=== PATIENT | female | born 1980 | race Caucasian/White ===

== ENCOUNTER → 2020-12-07 | Outpatient (CLI) | payer OTHER ==
[~2020-12-07] MED LIST: AMT50T; TYLENOL MIGRAINE
--- NOTE | 2020-12-07 17:05 | Diagnostic Imaging Report ---
PROCEDURE: US Non-ob pelvis comp/trans. TECHNIQUE: Multiple realtime grayscale images were obtained of the pelvis in various projections endovaginally. Transabdominal imaging was also performed. INDICATION: Abnormal uterine bleeding. FINDINGS: The uterus measures 9.6 x 5.4 x 6 cm. The right ovary measures 2.8 x 1.5 x 2.5 cm. Endometrial stripe is 8 mm. There are no myometrial masses. The right ovary measures 2.8 x 1.5 x 2.5 cm. The left ovary measures 3.5 x 1.1 x 2.9 cm. There are small follicular cysts present. There is normal blood flow to both ovaries. There is no free fluid. IMPRESSION: Simple appearing left ovarian cyst. No abnormalities demonstrated. Dictated on workstation # [id number]
== END ==
LOC: RAD 15:15
PROVIDERS: ATTEND Family Medicine
DX: N83.202 Unspecified ovarian cyst, left side (principal)
CPT/HCPCS: 76830; 76856

== ENCOUNTER 2021-05-31 05:29 | Outpatient (CLI) | payer OTHER ==
[~2021-05-31] VITALS: Ht 175.3 cm; Wt 106.8 kg
[2021-05-31] MEDS ORDERED: PROP80CA4 PO (11:17)
[2021-05-31] MEDS ORDERED: METF750T45 PO (11:17)
[2021-05-31] MEDS ORDERED: LIRA0.6P SQ (11:17)
[2021-05-31] MEDS ORDERED: TRAZ-227 PO (11:17)
[2021-05-31] MEDS ORDERED: DULO60CA59 PO (11:17)
[2021-06-03] MEDS ORDERED: IBUP-1773 PO (12:52)
[2021-06-03] MEDS ORDERED: MEDR10TA PO (12:52)
== END 2021-05-31 11:44 | disposition home or self-care (01) ==
LOC: PREOP 05:29
PROVIDERS: ATTEND Obstetrics & Gynecology
DX: Z01.818 Encounter for other preprocedural examination (principal)

== ENCOUNTER 2021-06-03 09:30 | Day surgery (SDC) | payer OTHER ==
[2021-06-03] VITALS (10 sets, daily range): BP systolic 106–124; BP diastolic 64–74
[~2021-06-03] VITALS: Ht 175.3 cm; Wt 106.8 kg
[~2021-06-03 09:30] MED LIST changes: +DULO60CA59 PO; +LIRA0.6P SQ; +METF750T45 PO; +PROP80CA4 PO; +TRAZ-227 PO
[2021-06-03] MEDS ORDERED: LACTATED RINGERS 1,000 ML IV PRN (09:45)
[2021-06-03 10:13] LABS: BASOPHILS # (AUTO) 0.1 10^3/uL (0.0-0.1); BASOPHILS % (AUTO) 1 % (0-10); EOSINOPHILS # (AUTO) 0.2 10^3/uL (0.0-0.3); EOSINOPHILS % (AUTO) 3 % (0-10); HEMATOCRIT 38 % (35-52); HEMOGLOBIN 12.5 g/dL (11.5-16.0); LYMPHOCYTES # (AUTO) 1.5 10^3/uL (1.0-4.0); LYMPHOCYTES % (AUTO) 23 % (12-44); MEAN CORPUSCULAR HEMOGLOBIN 27 pg (25-34); MEAN CORPUSCULAR HGB CONC 33 g/dL (32-36); MEAN CORPUSCULAR VOLUME 84 fL (80-99); MONOCYTES # (AUTO) 0.4 10^3/uL (0.0-1.0); MONOCYTES % (AUTO) 6 % (0-12); NEUTROPHILS # (AUTO) 4.3 10^3/uL (1.8-7.8); NEUTROPHILS % (AUTO) 66 % (42-75); PLATELET COUNT 148 10^3/uL (130-400); WHITE BLOOD COUNT 6.5 10^3/uL (4.3-11.0)
[2021-06-03] MEDS ORDERED: BUPIVACAINE 0.25% 30 ML (SENSORCAINE) VIAL ONE (10:46)
[2021-06-03] MEDS ORDERED: MIDAZOLAM 2 MG/2 ML (VERSED) VIAL ONE ×2 (11:05→11:15)
[2021-06-03] MEDS ORDERED: LIDOCAINE PF 2% 5 ML (XYLOCAINE) VIAL ONE (11:15)
[2021-06-03] MEDS ORDERED: fentaNYL INJ 100 MCG/2 ML AMP ONE (11:15)
[2021-06-03] MEDS ORDERED: ONDANSETRON 4 MG/2 ML (SDV) Z0FRAN ONE (11:15)
[2021-06-03] MEDS ORDERED: proPOfol 200 MG/20 ML (DIPRIVAN) VIAL IV ONE (11:15)
[2021-06-03] MEDS ORDERED: MIDAZOLAM 2 MG/2 ML (VERSED) VIAL IVP ONE (11:15)
[2021-06-03] MEDS ORDERED: KETOROLAC 30 MG/ML VIAL ONE (12:11)
[2021-06-03] MEDS ORDERED: SEVOFLURANE (ULTANE) 15 ML INHAL SOLN ONE (12:28)
[2021-06-03] MEDS ORDERED: PROMETHAZINE INJ 25 MG/ML (PHENERGAN) AMP IVP ONE (12:45)
[2021-06-03] MEDS ORDERED: MEPERIDINE (DEMEROL) INJ 50 MG/ML IVP ONE (12:45)
[2021-06-03] MEDS ORDERED: HYDROmorphone 2 MG/ML VIAL (DILAUDID) IV ONE (12:45)
[2021-06-03] MEDS ORDERED: morphine INJ 10 MG/ML 1ML (SYR OR VIAL) IVP ONE (12:45)
[2021-06-03] MEDS ORDERED: ONDANSETRON 4 MG/2 ML (SDV) Z0FRAN IVP PRN ×2 (12:45→13:00)
--- NOTE | 2021-06-03 12:51 | Anesthesia-General Post-Op ---
General Patient Condition Mental Status/LOC: Same as Preop Cardiovascular: Satisfactory Nausea/Vomiting: Absent Respiratory: Satisfactory Pain: Controlled Complications: Absent Post Op Complications Complications None Follow Up Care/Instructions Patient Instructions None needed. Anesthesia/Patient Condition Patient Condition Patient is doing well, no complaints, stable vital signs, no apparent adverse anesthesia problems. No complications reported per nursing. FOX LIVE CRNA Jun 03, 2021 12:51
[2021-06-03] MEDS ORDERED: IBUP-1773 PO (12:52)
[2021-06-03] MEDS ORDERED: MEDR10TA PO (12:52)
--- NOTE | 2021-06-03 12:53 | Discharge Inst-Women's Service ---
Discharge Inst-Women's Serv Depart Medication/Instructions New, Converted or Re-Newed RX: Transmitted to Pharmacy Problems Reviewed?: Yes Consults/Follow Up Additional Follow Up: Yes Orders/Referrals Dr. Morales in 7-10 days Activity Activity: Activity as Tolerated Driving Instructions: You May Drive NO SMOKING: NO SMOKING Nothing Inside Vagina: No Douching, No [place], No Tampons Diet Discharge Diet: No Restrictions Symptoms to Report to : Bleeding Excessive, Pain Increased, Fever Over 101 Degrees F, Vaginal Bleeding Increase, Questions/Concerns For Any Problems or Questions: Contact Your Physician NOMI MORALES DO Jun 03, 2021 12:53
[2021-06-03] MEDS ORDERED: KETOROLAC 30 MG/ML VIAL IVP ONE (13:00)
[2021-06-03] MEDS ORDERED: D5 LR IV SOLUTION 1,000 ML IV SCH (13:00)
[2021-06-03] MEDS ORDERED: HYDROcodone/APAP 5 MG/325 MG (LORTAB) TAB PO PRN (13:00)
--- NOTE | 2021-06-03 14:47 | OPERATIVE REPORT ---
DATE OF SERVICE: PREOPERATIVE DIAGNOSES: 1. A 40-year-old female with abnormal uterine bleeding. 2. Thickened endometrium on uterine ultrasound. POSTOPERATIVE DIAGNOSES: 1. A 40-year-old female with abnormal uterine bleeding. 2. Thickened endometrium on uterine ultrasound. 3. Intracervical mass. PROCEDURE: D and C. SURGEON: Vamsi Lr DO ANESTHESIA: LMA general. ESTIMATED BLOOD LOSS: 50 mL. URINE OUTPUT: 100 mL drained at the start of procedure. FLUIDS: 800 mL lactated Ringer's solution. FINDINGS: Grossly normal appearing external female genitalia. Cervix appears normal with the exception of a mass that appears to be arising from the cervical os consistent with potentially a fibroid. SPECIMEN SENT: Endometrial curettings. INDICATIONS FOR PROCEDURE: This 40-year-old female is a patient who had sought care for abnormal bleeding and bleeding changes in the past six months. She reports bleeding through tampons and pads and having to change her clothes at work. Discussed with the patient due to her age, need for endometrial sampling. We discussed D and C as both of endometrial sampling, potentially curative measures. Risks of procedure were discussed with the patient in detail. After all her questions were answered in the preoperative area, the patient was taken to the operating room. OPERATIVE REPORT IN DETAIL: Once in the operating room, the patient was placed in the dorsal lithotomy position, prepped and draped in normal sterile fashion. Anesthesia was administered and found to be adequate. The bladder was then drained using straight catheterization. Weighted speculum was inserted to the patient's vagina. Right angle retractor was used to visualize the cervix. It was grasped at 12 o'clock position using a long Allis clamp. I first began by taking a scraping of the visible intracervical mass that appears to be a fibroid. I do this with a ring forceps and then a curettage. I then performed a paracervical block at 3 and 9 o'clock positions on the cervix. Care was taken to aspirate for injecting 0.25% Marcaine, 5 mL were injected into each site. I then gently sound the uterine cavity, depth was found to be 8 cm. I dilated the cervix to a maximum dilatation approximately 1 cm, at which point I performed a gentle curettage of all endometrial surfaces. A copious amount of endometrial tissue was collected in the process of doing this, after which there was a small amount of bleeding noted from the biopsy site on the cervix, which I made hemostatic using silver nitrate, then bleeding subsides significantly. All instruments were removed from the patient's vagina at that point. Lap and sponge counts were correct at the end of the procedure. Instrument counts correct as well. Job ID: [id number] DocumentID: [id number] Dictated Date: 06/03/2021 13:03:28 Application Coordinator Date: 06/03/2021 14:46:11 Dictated By: DO CISCO MALAVE
== END 2021-06-03 14:25 | disposition home or self-care (01) ==
LOC: SDC 09:30
PROVIDERS: ATTEND Obstetrics & Gynecology
DX: N84.0 Polyp of corpus uteri (principal); N94.12 Deep dyspareunia; E11.9 Type 2 diabetes mellitus without complications; Z79.84 Long term (current) use of oral hypoglycemic drugs; Z98.51 Tubal ligation status
CPT/HCPCS: 36415; 82947; 84443; 84703; 85025; 86850; 86900; 86901; 87081

== ENCOUNTER 2021-07-01 05:50 | Outpatient (CLI) | payer OTHER ==
[~2021-07-01] VITALS: Ht 175.3 cm; Wt 106.8 kg
[~2021-07-01 05:50] MED LIST changes: +IBUP-1773 PO; +MEDR10TA PO
[2021-07-03] MEDS ORDERED: DULA0.75 SQ (13:39)
[2021-07-03] MEDS ORDERED: DULO60CA7 PO (13:39)
== END 2021-07-03 14:06 | disposition home or self-care (01) ==
LOC: PREOP 05:50
PROVIDERS: ATTEND Obstetrics & Gynecology
DX: Z01.818 Encounter for other preprocedural examination (principal)

== ENCOUNTER 2021-07-08 05:58 | Day surgery (SDC) | payer OTHER ==
[2021-07-08] VITALS (9 sets, daily range): BP systolic 109–134; BP diastolic 59–81
[~2021-07-08] VITALS: Ht 175.3 cm; Wt 106.8 kg
[~2021-07-08 05:58] MED LIST changes: +DULA0.75 SQ; +DULO60CA7 PO
[2021-07-08] MEDS ORDERED: metroNIDAZOLE 500MG/100ML IVPB 100 ML IV ONE (06:15)
[2021-07-08] MEDS ORDERED: ceFAZolin 2 GM IV Premixed 50 ML IV ONE (06:15)
[2021-07-08] MEDS ORDERED: LACTATED RINGERS 1,000 ML IV PRN (06:15)
[2021-07-08 06:46] LABS: BASOPHILS # (AUTO) 0.1 10^3/uL (0.0-0.1)
[2021-07-08 06:48] LABS: BASOPHILS % (AUTO) 1 % (0-10); EOSINOPHILS # (AUTO) 0.3 10^3/uL (0.0-0.3); EOSINOPHILS % (AUTO) 3 % (0-10); HEMATOCRIT 37 % (35-52); LYMPHOCYTES # (AUTO) 1.3 10^3/uL (1.0-4.0); LYMPHOCYTES % (AUTO) 17 % (12-44); MEAN CORPUSCULAR HEMOGLOBIN 28 pg (25-34); MEAN CORPUSCULAR HGB CONC 33 g/dL (32-36); MEAN CORPUSCULAR VOLUME 85 fL (80-99); MEAN PLATELET VOLUME 14.2 fL (9.0-12.2); MONOCYTES # (AUTO) 0.6 10^3/uL (0.0-1.0); MONOCYTES % (AUTO) 7 % (0-12); NEUTROPHILS # (AUTO) 5.6 10^3/uL (1.8-7.8); NEUTROPHILS % (AUTO) 71 % (42-75); PLATELET COUNT 157 10^3/uL (130-400); WHITE BLOOD COUNT 7.8 10^3/uL (4.3-11.0)
[2021-07-08] MEDS ORDERED: ROCURONIUM 10 MG/ML 5 ML SYRINGE IV ONE ×2 (06:57→08:24)
[2021-07-08] MEDS ORDERED: NEOSTIGMINE 3 MG/3 ML VIAL ONE (06:57)
[2021-07-08] MEDS ORDERED: LIDOCAINE PF 2% 5 ML (XYLOCAINE) VIAL ONE (06:57)
[2021-07-08] MEDS ORDERED: proPOfol 200 MG/20 ML (DIPRIVAN) VIAL IV ONE (06:57)
[2021-07-08] MEDS ORDERED: GLYCOPYRROLATE 0.2 MG/ML (ROBINUL) 2 ML VIAL ONE (06:57)
[2021-07-08] MEDS ORDERED: ONDANSETRON 4 MG/2 ML (SDV) Z0FRAN ONE ×2 (06:57→07:00)
[2021-07-08] MEDS ORDERED: MIDAZOLAM 2 MG/2 ML (VERSED) VIAL ONE (06:57)
[2021-07-08] MEDS ORDERED: fentaNYL INJ 100 MCG/2 ML AMP ONE (06:57)
[2021-07-08] MEDS ORDERED: LACTATED RINGERS 1,000 ML IV SCH (07:00)
[2021-07-08] MEDS ORDERED: SCOPOLAMINE 1.5 MG (TRANSDERM-SCOP) PATCH TD ONE (07:00)
[2021-07-08] MEDS ORDERED: ONDANSETRON 4 MG/2 ML (SDV) Z0FRAN IVP ONE (07:00)
[2021-07-08] MEDS ORDERED: FAMOTIDINE 20MG/2ML IV (PEPCID) IVP ONE (07:00)
[2021-07-08] MEDS ORDERED: SCOPOLAMINE 1.5 MG (TRANSDERM-SCOP) PATCH ONE (07:00)
[2021-07-08] MEDS ORDERED: FAMOTIDINE 20MG/2ML IV (PEPCID) ONE (07:01)
[2021-07-08] MEDS ORDERED: BUPIVACAINE 0.25% 30 ML (SENSORCAINE) VIAL ONE (07:02)
--- NOTE | 2021-07-08 07:06 | Progress Note-Pre Operative ---
Pre-Operative Progress Note H&P Reviewed The H&P was reviewed, patient examined and no changes noted. Date Seen by Provider: Jul 08, 2021 Time Seen by Provider: 07:05 Date H&P Reviewed: Jul 08, 2021 Time H&P Reviewed: 07:00 Pre-Operative Diagnosis: AUB, Fibroid uterus NOMI MORALES DO Jul 08, 2021 07:06
--- NOTE | 2021-07-08 07:11 | Discharge Inst-Women's Service ---
Discharge Inst-Women's Serv Depart Medication/Instructions New, Converted or Re-Newed RX: Transmitted to Pharmacy Problems Reviewed?: Yes Consults/Follow Up Additional Follow Up: Yes Orders/Referrals Dr. Lr in 7-10 days and in 8 weeks Activity Activity: Activity as Tolerated Driving Instructions: No Driving for 1 Week NO SMOKING: NO SMOKING Nothing Inside Vagina: No Douching, No [place], No Tampons Diet Discharge Diet: No Restrictions Symptoms to Report to : Bleeding Excessive, Pain Increased, Fever Over 101 Degrees F, Vaginal Bleeding Increase, Questions/Concerns For Any Problems or Questions: Contact Your Physician Skin/Wound Care Infection Signs and Symptoms: Increased Redness, Foul Odor of Wound, Increased Drainage, Skin Itchy or Has a Rash, Increased Swelling, Temperature Above 101 F Operative Area Clean and Dry: Keep Incision Clean/Dry Stitches/Jose/Dermabond: Dermabond, Care of Stitches Bathing Instructions: NOMI Ruiz DO Jul 08, 2021 07:11
[2021-07-08] MEDS ORDERED: DOCU100C37 PO (07:13)
[2021-07-08] MEDS ORDERED: BENZ1LOZ61 MM (07:13)
[2021-07-08] MEDS ORDERED: IBUP-844 PO (07:13)
[2021-07-08] MEDS ORDERED: SMT80CT PO (07:13)
[2021-07-08] MEDS ORDERED: HYDR-34 PO (07:13)
[2021-07-08] MEDS ORDERED: ANTACID SUSP 30 ML UDC (MYLANTA) PO PRN (07:15)
[2021-07-08] MEDS ORDERED: SIMETHICONE 80 MG (MYLICON) CHEW PO PRN (07:15)
[2021-07-08] MEDS ORDERED: HYDROmorphone 2 MG/ML VIAL (DILAUDID) IV PRN (07:15)
[2021-07-08] MEDS ORDERED: NALOXONE 0.4 MG/ML 1 ML (NARCAN) VIAL IV PRN (07:15)
[2021-07-08] MEDS ORDERED: ZOLPIDEM 5 MG (AMBIEN) TAB PO PRN (07:15)
[2021-07-08] MEDS ORDERED: HYDROcodone/APAP 7.5 MG/325 MG (LORTAB, LORCET PLUS) TABLET PO PRN (07:15)
[2021-07-08] MEDS ORDERED: ONDANSETRON 4 MG/2 ML (SDV) Z0FRAN IV PRN (07:15)
[2021-07-08] MEDS ORDERED: KETOROLAC 30 MG/ML VIAL IVP PRN (07:15)
[2021-07-08] MEDS ORDERED: DOCUSATE SODIUM 100 MG (COLACE) CAP PO PRN (07:15)
[2021-07-08] MEDS ORDERED: CHLORASEPTIC LOZENGE MM PRN (07:15)
[2021-07-08] MEDS: LACTATED RINGERS 1,000 ML IV SCH ×2 (07:22→11:46)
[2021-07-08] MEDS ORDERED: HYDROmorphone 2 MG/ML VIAL (DILAUDID) ONE (08:02)
[2021-07-08] MEDS ORDERED: SEVOFLURANE (ULTANE) 15 ML INHAL SOLN ONE (08:49)
[2021-07-08] MEDS ORDERED: ONDANSETRON 4 MG/2 ML (SDV) Z0FRAN IVP PRN (09:15)
[2021-07-08] MEDS ORDERED: HYDROmorphone 2 MG/ML VIAL (DILAUDID) IV ONE (09:15)
[2021-07-08] MEDS ORDERED: morphine INJ 10 MG/ML 1ML (SYR OR VIAL) IVP ONE (09:15)
[2021-07-08] MEDS ORDERED: KETOROLAC 30 MG/ML VIAL ONE (09:19)
[2021-07-08] MEDS ORDERED: IBUPROFEN 600 MG (MOTRIN) TAB PO SCH (12:00)
--- NOTE | 2021-07-08 17:36 | OPERATIVE REPORT ---
DATE OF SERVICE: PREOPERATIVE DIAGNOSES: 1. A 40-year-old female with abnormal uterine bleeding. 2. Menorrhagia. 3. Fibroid uterus. POSTOPERATIVE DIAGNOSES: 1. A 40-year-old female with abnormal uterine bleeding. 2. Menorrhagia. 3. Fibroid uterus. PROCEDURE: Robotic-assisted total laparoscopic hysterectomy with bilateral salpingectomy. SURGEON: Vamsi Morales DO TIMBER HEWER: Cyn Bush DNP, was necessary for manipulation and retraction throughout the procedure. ANESTHESIA: General endotracheal. ESTIMATED BLOOD LOSS: 50 mL. URINE OUTPUT: 200 mL clear at the end of the procedure. FLUIDS: 1800 mL of lactated Ringer's solution. FINDINGS: A bulky and hyperemic-appearing uterus with bilateral fallopian tubes consistent with history of prior tubal ligation, grossly normal appearing bilateral ovaries and external female genitalia. SPECIMEN SENT: Uterus, bilateral fallopian tubes. INDICATIONS FOR PROCEDURE: This 40-year-old female is a patient who had sought care in my office for ongoing issues with heavy bleeding. She underwent D and C not that long ago and was found to have fragments of fibroid on her endometrial curettings as well as otherwise normal benign tissue. The patient had significant bleeding postoperatively from the D and C continued to do so for the next several weeks. Due to concerns that the bleeding was not getting any better, the patient wished to proceed with more definitive measures, although the alternatives had already been discussed prior to the D and C. We once again reviewed these and the patient was agreeable to proceed with more definitive measures in the form of hysterectomy. Risks of the procedure were discussed with the patient in detail including risk of bleeding, infection, damage to surrounding structures including, but not limited to bowel, bladder, ureter, kidneys, possible need for reoperation, postoperative complications that may occur, risk from anesthesia, recovery timeframe, hospital stay and even . After everything was discussed with the patient in detail, consent was obtained in the preoperative area, the patient was taken to the operating room. OPERATIVE REPORT IN DETAIL: Once in the operating room, general anesthesia was found to be adequate. She was placed in dorsal lithotomy position, prepped and draped in normal sterile fashion. Timeout was performed and a Leonard catheter was placed using sterile technique. A weighted speculum inserted to the patient's vagina. Right angle retractor was used to visualize the cervix, which was grasped at 12 o'clock position using long Allis clamp. I then placed an 0 Vicryl suture through the anterior lip of the cervix and the suture was then used as my retraction on the cervix. I then gently sound the uterine cavity, depth was found to be 9 cm. I selected an 8 cm Shayy uterine manipulator tip and a 3.5 cm colpotomy ring, advanced the manipulator tip into the uterus where I deployed the balloon and advanced the colpotomy ring around the vaginal fornix, at which point I removed all the other instruments from the patient's vagina, performed change of gloves obtained my attention to the abdomen, where subcostally at the left midclavicular line, I introduced the Veress needle approximately two fingerbreadths below the subcostal margin. The Veress needle is introduced through the skin until intraperitoneal placement was confirmed using saline drop test. An opening pressure of 4 mmHg was noted using CO2 gas. I proceeded with insufflation to maximum pressure of 15 mmHg, at which point, I made an infraumbilical incision with a knife after infiltrating the skin using 0.25% Marcaine and once an incision was made, I introduced an 8 mm blunt laparoscopic [place] camera trocar. Once this trocar was in place, I am able to confirm intraperitoneal placement using the da [place] laparoscope. There was no evidence of damage upon my entry site. Brief scan of the upper abdominal anatomy appears to be grossly normal. The Veress needle site is inspected and found to be hemostatic and without damage to surrounding structures. The Veress was then removed from the left upper quadrant. I then placed the patient in steep Trendelenburg. We were able to visualize all my pelvic anatomy as defined in my findings above. I placed two lateral trocars using both 8 mm trocars approximately 10 cm lateral to my infraumbilical trocar. Once both these trocars were in place, I brought in the [place] robot and docked in appropriate fashion placing the SynchroSeal device in left hand and monopolar rebecca in the right hand. I performed the following dissection bilaterally. I started the uteroovarian ligament, which I sealed and transected using the SynchroSeal device. I then created a window in the mesosalpinx and took this laterally using the SynchroSeal device, amputating the fallopian tube from its surrounding blood supply. I then grasped the round ligament, which I sealed and transected using the SynchroSeal device. I then grasped the entire broad ligament, which I sealed and transected using the SynchroSeal device. I do this down to the level of the lower uterine segment, at which point I the anterior and posterior leaflets of the broad ligament, anterior leaflet dissection was taken around the anterior vaginal fornix and posterior leaflets was taken around the posterior vaginal fornix. This allows me to skeletonize the uterine vessels laterally, which I sealed and transected using the SynchroSeal device. I then created a colpotomy at 12 o'clock position using monopolar rebecca and took this circumferentially around the vaginal fornix amputating the cervix away from the vagina. The entire specimen was then removed through the vagina. I then closed the lateral vaginal apices of the vaginal cuff using 2-0 Vicryl suture in a [id number] fashion, colposuspending them to the uterosacral ligaments. I then closed the remainder of the vaginal cuff using 2-0 V-Loc in a running fashion, after which there was no active bleeding noted from any of my dissection planes. I then undocked the da [place] robot and proceeded with remainder of the case laparoscopically. I copiously irrigated the pelvis using normal saline. Once again, there was no active bleeding noted from any of my dissection planes. I placed Surgiflo hemostatic agent over all my planes of dissection. I had the patient taken out of steep Trendelenburg where I removed the lateral trocars under direct visualization of laparoscope and infraumbilical trocars left in place to release insufflation and introduced 10 mL of 0.25% Marcaine into the peritoneal cavity for postoperative pain management. I then removed this trocar as well. The skin of all 3 sites were then reapproximated using 4-0 Monocryl in interrupted subcuticular stitches. Dermabond was applied to the incisions and the puncture site from the Veress. Leonard catheter was left in place. Lap and sponge counts were correct at the end of the procedure. Instrument counts correct as well. Job ID: [id number] DocumentID: [id number] Dictated Date: 07/08/2021 10:27:08 Internet Marketing Manager Date: 07/08/2021 17:35:58 Dictated By: VAMSI MORALES DO
--- NOTE | 2021-07-09 08:53 | Anesthesia-General Post-Op ---
General Patient Condition Mental Status/LOC: Same as Preop Cardiovascular: Satisfactory Nausea/Vomiting: Absent Respiratory: Satisfactory Pain: Controlled Complications: Absent Post Op Complications Complications None Follow Up Care/Instructions Patient Instructions None needed. Anesthesia/Patient Condition Patient Condition Patient is doing well, no complaints, stable vital signs, no apparent adverse anesthesia problems. No complications reported per nursing. D/C home per [facility] [place] Criteria: Yes JULIAN MCNAIR CRNA Jul 09, 2021 08:53
== END 2021-07-08 14:17 | disposition home or self-care (01) ==
LOC: SDC 05:58 → WS 09:18 → SDC 14:17
PROVIDERS: ATTEND Obstetrics & Gynecology
DX: D25.1 Intramural leiomyoma of uterus (principal); D26.9 Other benign neoplasm of uterus, unspecified; N87.9 Dysplasia of cervix uteri, unspecified; N70.11 Chronic salpingitis; N88.8 Other specified noninflammatory disorders of cervix uteri; N80.0 Endometriosis of uterus; Z98.890 Other specified postprocedural states; Z80.49 Family history of malignant neoplasm of other genital organs; Z98.51 Tubal ligation status
CPT/HCPCS: 36415; 84703; 85025; 86850; 86900; 86901; 87081; 88307

== ENCOUNTER → 2021-10-17 | Outpatient (CLI) | payer OTHER ==
[~2021-10-17] MED LIST changes: +BENZ1LOZ74 MM; +DOCU100C37 PO; +HYDR-34 PO; +IBUP-844 PO; +SMT80CT PO
--- NOTE | 2021-10-17 17:12 | Diagnostic Imaging Report ---
Indication: Right shoulder pain Findings: 3 views of the right shoulder demonstrate minimal mild hypertrophic AC joint. The glenohumeral joint is normal. There is no fracture or dislocation. No osseous lesion. Impression: Mild AC joint hypertrophy. Dictated by: Dictated on workstation # [id number]
== END ==
LOC: RAD 16:06
PROVIDERS: ATTEND Family Medicine
DX: M89.311 Hypertrophy of bone, right shoulder (principal)
CPT/HCPCS: 73030